=== PATIENT | female | born 2000 | race Caucasian/White ===

== ENCOUNTER 2019-03-22 16:11 | Emergency (ER) | payer MEDICAID ==
[2019-03-22 16:22] VITALS: BP 124/67
--- NOTE | 2019-03-22 16:27 | ED Physician Documentation ---
PD HPI URI - Stated complaint Stated Complaint: 28 WKS/HOT/NAUSEA - Chief complaint Chief Complaint: Heent - History obtained from History obtained from: Patient - History of Present Illness Timing - onset: How many days ago (4-5) Timing duration: Days (4-5) Timing details: Gradual onset (had runny nose and scratchy throat, and now with frontal pressure/headache and some green nasal discharge. Had flown from [place] a week ago. Moving here but no local OB yet. Says had elevated glucose and failed GTT recently in [place].) Associated symptoms: Sweats, Nasal congestion, Sinus pain (with green discharge), Dry cough, Other (nausea and reflux without vomiting nor diarrhea.). No: Fever, Chills, Swollen nodes, Productive cough, Dyspnea Contributing factors: Travel. No: Immunocompromised Similar symptoms before: Has not had sx before Recently seen: Clinic (OB clinic in [place] couple weeks ago) Review of Systems Constitutional: reports: Chills. denies: Fever, Myalgias Nose: reports: Rhinorrhea / runny nose, Congestion, Sinus pressure / pain Throat: denies: Sore throat Respiratory: reports: Cough GI: reports: Nausea. denies: Vomiting, Diarrhea : reports: Now EGA (29 weeks) Skin: denies: Rash, Lesions Musculoskeletal: denies: Back pain PD PAST MEDICAL HISTORY - Past Medical History Cardiovascular: None Respiratory: None Neuro: None Endocrine/Autoimmune: None - Present Medications Home Medications: Ambulatory Orders Medication Instructions Recorded Confirmed Cephalexin [Keflex] 500 mg PO TID #20 capsule 03/22/19 Cetirizine [ZyrTEC] 10 mg PO DAILY #20 tablet 03/22/19 Famotidine 20 mg PO DAILY #30 tablet 03/22/19 dexAMETHasone [Decadron] 4 mg PO DAILY #5 tablet 03/22/19 - Allergies Allergies/Adverse Reactions: Allergies Allergy/AdvReac Type Severity Reaction Status Date / Time dexmethylphenidate Allergy Emesis Verified 03/22/19 16:18 [From Focalin] PD ED PE NORMAL - Vitals Vital signs reviewed: Yes - General General: Alert and oriented X 3, No acute distress, Well developed/nourished - HEENT HEENT: Ears normal, Pharynx benign - Neck Neck: Supple, no meningeal sign, No adenopathy - Cardiac Cardiac: RRR, No murmur - Respiratory Respiratory: Clear bilaterally - Abdomen Abdomen: Soft, Non tender, Other (gravid c/w dates, with fundus between umbili cus and xyphoid. ) - Derm Derm: Normal color, Warm and dry, No rash Results - Vitals Vitals: Vital Signs - 24 hr 03/22/19 16:18 Temperature 37 C Heart Rate 77 Respiratory 17 Rate Blood Pressure 124/67 O2 Saturation 98 Oxygen O2 Source Room air - Labs Labs: Laboratory Tests 03/22/19 03/22/19 03/22/19 16:55 17:00 17:00 WBC 12.3 H RBC 3.96 L Hgb 11.8 L Hct 35.9 L MCV 90.7 MCH 29.8 MCHC 32.9 RDW 13.5 Plt Count 286 MPV 10.9 H Neut # (Auto) 8.4 H Lymph # (Auto) 2.6 Latimer # (Auto) 0.8 Eos # (Auto) 0.3 Baso # (Auto) 0.0 Absolute Nucleated RBC 0.00 Nucleated RBC % 0.0 Sodium 139 Potassium 3.6 Chloride 105 Carbon Dioxide 25 Anion Gap 9.0 BUN 9 Creatinine 0.5 Estimated GFR (MDRD) 159 Glucose 91 POC Whole Bld Glucose Calcium 10.0 Total Bilirubin 0.2 AST 15 ALT 15 Alkaline Phosphatase 74 Total Protein 7.3 Albumin 3.1 L Globulin 4.2 Albumin/Globulin Ratio 0.7 L Lipase 27 Urine Color YELLOW Urine Clarity CLEAR Urine pH 6.0 Ur Specific [place] 1.010 Urine Protein NEGATIVE Urine Glucose (UA) NEGATIVE Urine Ketones NEGATIVE Urine Occult Blood NEGATIVE Urine Nitrite NEGATIVE Urine Bilirubin NEGATIVE Urine Urobilinogen 0.2 (NORMAL) Ur Leukocyte Esterase NEGATIVE Ur Microscopic Review NOT INDICATED Urine Culture Comments NOT INDICATED 03/22/19 17:06 WBC RBC Hgb Hct MCV MCH MCHC RDW Plt Count MPV Neut # (Auto) Lymph # (Auto) Latimer # (Auto) Eos # (Auto) Baso # (Auto) Absolute Nucleated RBC Nucleated RBC % Sodium Potassium Chloride Carbon Dioxide Anion Gap BUN Creatinine Estimated GFR (MDRD) Glucose POC Whole Bld Glucose 90 Calcium Total Bilirubin AST ALT Alkaline Phosphatase Total Protein Albumin Globulin Albumin/Globulin Ratio Lipase Urine Color Urine Clarity Urine pH Ur Specific [place] Urine Protein Urine Glucose (UA) Urine Ketones Urine Occult Blood Urine Nitrite Urine Bilirubin Urine Urobilinogen Ur Leukocyte Esterase Ur Microscopic Review Urine Culture Comments PD MEDICAL DECISION MAKING - ED course Complexity details: considered differential (moved to here from [place] a week ago. No local [facility] yet. Got basic labs, given history of elevated sugar. Appears okay here. Symptoms sound c/w allergies and now sinus infection. ), d/w patient Departure - Departure Disposition: 01 Home, Self Care Clinical Impression: Qualifiers: Weeks of gestation: 29 weeks Qualified Code(s): Z3A.29 - 29 weeks gestation of Sinusitis Qualifiers: Sinusitis location: frontal Chronicity: acute Recurrence: non-recurrent Qualified Code(s): J01.10 - Acute frontal sinusitis, unspecified Condition: Stable Record reviewed to determine appropriate education?: Yes Instructions: ED Sinusitis Abx Tx Follow-Up: Treva Villavicencio MD [Provider Admit Priv/Credential] - Prescriptions: Cephalexin [Keflex] 500 mg PO TID #20 capsule Cetirizine [ZyrTEC] 10 mg PO DAILY #20 tablet dexAMETHasone [Decadron] 4 mg PO DAILY #5 tablet Famotidine 20 mg PO DAILY #30 tablet Comments: Tylenol if needed for fevers or pain. Decadron steroid for sinus inflammation daily for 5 days. Cephalexin antibiotic 3 times a day for a week for presumed sinus infection. Cetirizine antihistamine to help with congestion/allergies. Stay well-hydrated. Famotidine acid reducing medicine daily for a month to help with some of the reflux and heartburn. Add antacids if needed. Follow-up with [facility] AND TEST CL[facility], call their office Sunday for their soonest appointment to establish ongoing OB care here. Recheck if not improved over the next several days. Discharge Date/Time: 03/22/19 17:39
[2019-03-22] MEDS ORDERED: DEXAMETHASONE 10 MG/ML VIAL PO STA (16:48)
[2019-03-22] MEDS ORDERED: MAG HYDROX/AL HYDROX/SIMETH 30 ML UDC PO STA (16:48)
[2019-03-22] MEDS ORDERED: cephALEXin 250 MG CAPSULE PO STA (16:48)
[2019-03-22] MEDS ORDERED: FAMOTIDINE 20 MG TABLET PO STA (16:48)
[2019-03-22] MEDS ORDERED: CHERRY SYRUP 10 ML UDC PO ONE (16:48)
[2019-03-22] MEDS ORDERED: CETIRIZINE 10 MG TABLET PO STA (16:48)
[2019-03-22 17:07] LABS: BASOPHILS % (AUTO) 0.2 %; EOSINOPHILS # (AUTO) 0.3 10^3/uL (0.0-0.7); EOSINOPHILS % (AUTO) 2.5 %; HGB - HEMOGLOBIN 11.8 g/dL (12.0-16.0); LYMPHOCYTES # (AUTO) 2.6 10^3/uL (1.5-3.5); LYMPHOCYTES % (AUTO) 20.8 %; MEAN CORPUSCULAR HEMOGLOBIN 29.8 pg (27.0-31.0); MEAN CORPUSCULAR HGB CONC 32.9 g/dL (32.0-36.0); MEAN CORPUSCULAR VOLUME 90.7 fL (81.0-99.0); MEAN PLATELET VOLUME 10.9 fL (7.9-10.8); MONOCYTES # (AUTO) 0.8 10^3/uL (0.0-1.0); MONOCYTES % (AUTO) 6.5 %; NEUTROPHILS # (AUTO) 8.4 10^3/uL (1.5-6.6); NEUTROPHILS % (AUTO) 68.3 %; PLT - PLATELET COUNT 286 10^3/uL (130-450); RED BLOOD COUNT 3.96 10^6/uL (4.20-5.40); RED CELL DISTRIBUTION WIDTH 13.5 % (12.0-15.0); WHITE BLOOD COUNT 12.3 x10^3/uL (4.8-10.8)
[2019-03-22 17:09] LABS: BILIRUBIN,URINE NEGATIVE (NEGATIVE); CLARITY,URINE CLEAR (CLEAR); GLUCOSE, URINE (UA) NEGATIVE (NEGATIVE); KETONES,URINE (UA) NEGATIVE (NEGATIVE); LEUKOCYTE ESTERASE, URINE NEGATIVE (NEGATIVE); NITRITE,URINE NEGATIVE (NEGATIVE); OCCULT BLOOD,URINE NEGATIVE (NEGATIVE); PROTEIN,URINE NEGATIVE (NEGATIVE); UROBILINOGEN,URINE 0.2 (NORMAL) E.U./dL (NORMAL)
[2019-03-22 17:17] LABS: ALBUMIN 3.1 g/dL (3.2-5.5); ALBUMIN/GLOBULIN RATIO 0.7 (1.0-2.2); BILIRUBIN,TOTAL 0.2 mg/dL (0.2-1.0); CREATININE 0.5 mg/dL (0.4-1.0); TOTAL PROTEIN 7.3 g/dL (6.7-8.2)
== END 2019-03-22 17:39 | disposition home or self-care (01) ==
LOC: ED 16:11
DX: O99.513 Diseases of the respiratory system complicating pregnancy, third trimester (principal); J01.10 Acute frontal sinusitis, unspecified; Z3A.29 29 weeks gestation of pregnancy
CPT/HCPCS: 36415; 80053; 81003; 83690; 85025; 99283; 99284; A9270; 81001; 87086

== ENCOUNTER 2019-04-08 18:45 | Outpatient (CLI) | payer MEDICAID ==
[2019-04-08 19:32] LABS: BASOPHILS % (AUTO) 0.3 %; EOSINOPHILS # (AUTO) 0.2 10^3/uL (0.0-0.7); HGB - HEMOGLOBIN 10.9 g/dL (12.0-16.0); LYMPHOCYTES # (AUTO) 3.2 10^3/uL (1.5-3.5); LYMPHOCYTES % (AUTO) 20.9 %; MEAN CORPUSCULAR HEMOGLOBIN 28.7 pg (27.0-31.0); MEAN CORPUSCULAR HGB CONC 31.9 g/dL (32.0-36.0); MEAN PLATELET VOLUME 10.9 fL (7.9-10.8); MONOCYTES # (AUTO) 0.9 10^3/uL (0.0-1.0); MONOCYTES % (AUTO) 5.8 %; NEUTROPHILS # (AUTO) 10.8 10^3/uL (1.5-6.6); NEUTROPHILS % (AUTO) 70.4 %; PLT - PLATELET COUNT 262 10^3/uL (130-450); WHITE BLOOD COUNT 15.4 x10^3/uL (4.8-10.8)
[2019-04-08 19:32] LABS: BILIRUBIN,URINE NEGATIVE (NEGATIVE); GLUCOSE, URINE (UA) NEGATIVE (NEGATIVE); KETONES,URINE (UA) TRACE mg/dL (NEGATIVE); LEUKOCYTE ESTERASE, URINE NEGATIVE (NEGATIVE); NITRITE,URINE NEGATIVE (NEGATIVE); OCCULT BLOOD,URINE TRACE-LYSE (NEGATIVE); PH,URINE 6.5 PH (5.0-7.5); PROTEIN,URINE NEGATIVE (NEGATIVE); UROBILINOGEN,URINE 0.2 (NORMAL) E.U./dL (NORMAL)
[2019-04-08 19:36] LABS: CLARITY,URINE CLEAR (CLEAR)
[2019-04-08 19:51] LABS: RBC,URINE 0-5 /HPF (0-5)
[2019-04-08 19:52] LABS: BACTERIA,URINE Rare /HPF (None Seen); SQUAMOUS EPITHELIAL CELL,UR MANY Squamous (<= Few)
--- NOTE | 2019-04-08 23:24 | Ultrasound Report ---
Reason: abdominal tenderness Procedure Date: 04/08/2019 Accession Number: [id number] / [id number] Procedure: US - OB Limited CPT Code: FULL RESULT: EXAM: LIMITED OBSTETRICAL ULTRASOUND EXAM DATE: 04/08/2019 11:08 PM. CLINICAL HISTORY: Abdominal tenderness. COMPARISON: None. TECHNIQUE: Real-time sonographic evaluation of the fetus performed by the combat information center officer. Multiple counter sales representative static images were saved for review. DATING: Established EGA 31 weeks 2 days with QUANG 06/08/2019. GENERAL EVALUATION Courtney . Cardiac activity: 152 bpm. movement: Visualized. Presentation: Cephalic. Placenta: Anterior position. Amniotic fluid: Normal. CHUCKY 18.3 cm. MVP 7.0 cm. IMPRESSION: 1. Courtney live intrauterine with gestational age 31 weeks 2 days based on established QUANG 06/08/2019. 2. Unremarkable anterior placenta and normal CHUCKY of 18.3 cm. 3. No ultrasound abnormalities to explain tenderness. RADIA
[2019-04-08 23:29] LABS: TRICHOMONAS VAGINALIS DNA NEGATIVE (NEGATIVE)
[2019-04-08 23:53] VITALS: BP 113/65
--- NOTE | 2019-04-09 01:04 | PREOP HISTORY & PHYSICAL ---
DATE OF SERVICE: 04/08/2019 Physician: Jaime Phelan MD IDENTIFICATION: A 18-year-old, G4, P0, AB1 female who lists a due date of 06/08/2019. CHIEF COMPLAINT: Lower abdominal and groin pain. HISTORY OF PRESENT ILLNESS: The patient states that at roughly 1500 hours, she developed lower abdominal and groin pain. It became progressively worse with time. She denies any heavy lifting. She denies any trauma. She denies any bleeding. Last sex was Sunday about 3 o'clock. She has had OB care in [place], starting early and has been seen all the way up to 27 weeks, at which time she left [place] for here. PAST MEDICAL HISTORY 1. Gestational diabetes. 2. ADHD. PAST SURGICAL HISTORY: None. ALLERGIES: FOCALIN. MEDICATIONS: The patient denies taking any vitamins, iron at this time. HABITS: The patient smokes two to three cigarettes per day, has been counseled that she needs to cease this. She also takes THC for sleep. SOCIAL HISTORY: The patient is currently , in the process of a divorce. She lives with [place]. She states that she is in a safe, stable environment at this time. PHYSICAL EXAMINATION HEENT: Pupils are equal, round. Extraocular muscles are intact. NECK: Thyroid is not palpably enlarged. CARDIOVASCULAR: Regular rate and rhythm without murmurs. LUNGS: Lung leiva are clear without rales or wheezes. BACK: No spinal or CVA tenderness noted. ABDOMEN: Positive for a gravid uterus. The predominant tenderness is in the groin bilaterally. There is some midline uterine tenderness. PELVIC: Examination reveals a cervix, which is long, closed, posterior and high. LABORATORY DATA: I reviewed her labs and her 50 gram Glucola was 219. Her hemoglobin A1c was 5.2. She has had a quad screen, which is noted to be normal. Her blood type is A positive, she is antibody screen negative. Her test for hepatitis B, HIV is negative. Her rubella is immune. IMPRESSION 1. 31 weeks' gestation. 2. Gestational diabetes, which has not been treated. 3. 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 PLAN: I have obtained a urine, which is noted to be negative. An FFN has also been obtained, as well as cultures for group B strep, GC and chlamydia. Ultrasound for the uterus has been ordered. TD: 04/08/2019 20:45 MTDD
== END 2019-04-08 23:23 | disposition home or self-care (01) ==
LOC: WFO 18:45 → FBP 18:48 → WFO 23:23
PROVIDERS: ATTEND Obstetrics & Gynecology
DX: O24.419 Gestational diabetes mellitus in pregnancy, unspecified control (principal); Z3A.31 31 weeks gestation of pregnancy
CPT/HCPCS: 36415; 76815; 81001; 82731; 85025; 87081; 87086; 87491; 87591; 87661; 99213

== ENCOUNTER 2019-05-15 07:00 | Outpatient (CLI) | payer MEDICAID ==
[2019-05-16 21:46] LABS: TRICHOMONAS VAGINALIS DNA NEGATIVE (NEGATIVE)
== END 2019-05-16 23:59 | disposition home or self-care (01) ==
LOC: LAB.R 07:00
PROVIDERS: ATTEND Obstetrics & Gynecology
DX: O24.419 Gestational diabetes mellitus in pregnancy, unspecified control (principal)
CPT/HCPCS: 87491; 87591; 87661; 87797